=== PATIENT | female | born 1990 | race Caucasian/White ===

== ENCOUNTER 2018-06-24 21:39 | Emergency (ER) | payer MEDICAID ==
[~2018-06-24] VITALS: Ht 172.7 cm; Wt 49.0 kg
[~2018-06-24 21:39] MED LIST: ALPR0.5T9 PO; CLE150C PO; LAMO25TA PO; LURA80TA3 PO
[2018-06-24 21:56] VITALS: BP 116/81
--- NOTE | 2018-06-24 22:11 | NUR ---
Pt hyperventilating, can't control and cannot help it
[2018-06-24] MEDS ORDERED: LORazepam 1 MG tablet PO STA (22:12)
--- NOTE | 2018-06-24 22:13 | NUR ---
made aware and I received an order for ativan 2 mg po, so written.
== END 2018-06-24 23:31 | disposition home or self-care (01) ==
LOC: ER 21:40
DX: F41.9 Anxiety disorder, unspecified (principal); K21.9 Gastro-esophageal reflux disease without esophagitis; G89.29 Other chronic pain; F32.9 Major depressive disorder, single episode, unspecified; Z90.89 Acquired absence of other organs; Z88.8 Allergy status to other drugs, medicaments and biological substances
CPT/HCPCS: 99284

== ENCOUNTER 2018-11-18 17:52 | Emergency (ER) | payer MEDICAID ==
[~2018-11-18] VITALS: Ht 172.7 cm; Wt 54.5 kg
[~2018-11-18 17:52] MED LIST changes: -LAMO25TA PO; +LAMO25TA5 PO
[2018-11-18 17:56] VITALS: BP 112/67
[2018-11-18] MEDS ORDERED: HYDROcodone/acetaminophen 10/325mg tab PO ONE (18:10)
[2018-11-18] MEDS ORDERED: HYDR-4353 PO (18:10)
[2018-11-18] MEDS ORDERED: penicillin V potassium 500mg tablet PO ONE (18:10)
[2018-11-18] MEDS ORDERED: PENI500T2 PO (18:10)
== END 2018-11-18 18:25 | disposition home or self-care (01) ==
LOC: ER 17:52
DX: K08.89 Other specified disorders of teeth and supporting structures (principal); R51 Headache; K21.9 Gastro-esophageal reflux disease without esophagitis; G89.29 Other chronic pain; F41.9 Anxiety disorder, unspecified; F32.9 Major depressive disorder, single episode, unspecified; F10.99 Alcohol use, unspecified with unspecified alcohol-induced disorder; Z90.89 Acquired absence of other organs; Z88.8 Allergy status to other drugs, medicaments and biological substances; Z79.899 Other long term (current) drug therapy; Y90.9 Presence of alcohol in blood, level not specified
CPT/HCPCS: 99283

== ENCOUNTER 2021-03-04 06:59 | Emergency (ER) | payer MEDICAID ==
[~2021-03-04] VITALS: Ht 172.7 cm; Wt 65.5 kg
[2021-03-04 07:13] VITALS: BP 104/80
== END 2021-03-04 13:47 | disposition left against medical advice (07) ==
LOC: ER 06:59
DX: K08.89 Other specified disorders of teeth and supporting structures (principal); Z53.21 Procedure and treatment not carried out due to patient leaving prior to being seen by health care provider

== ENCOUNTER 2021-08-23 21:14 | Emergency (ER) | payer MEDICAID ==
[~2021-08-23] VITALS: Ht 172.7 cm; Wt 76.4 kg
[~2021-08-23 21:14] MED LIST changes: +LURA80TA2 PO; -LURA80TA3 PO
[2021-08-23 21:41] VITALS: BP 117/72
[2021-08-23 22:18] LABS: BASOPHILS % (AUTO) 0.8 % (0-1); EOSINOPHILS # (AUTO) 0.1 X10'3 (0-0.9); HEMATOCRIT 40.4 % (35.0-45.0); HEMOGLOBIN 13.5 g/dl (12.0-16.0); LYMPHOCYTES # (AUTO) 2.6 X10'3 (1.1-4.8); LYMPHOCYTES % (AUTO) 46.6 % (21-51); MEAN CORPUSCULAR HEMOGLOBIN 28.2 PG (27.0-31.0); MEAN CORPUSCULAR HGB CONC 33.4 g/dL (33.0-36.5); MEAN CORPUSCULAR VOLUME 84.3 FL (78-98); MEAN PLATELET VOLUME 7.3 FL (7.4-10.4); MONOCYTES # (AUTO) 0.5 X10'3 (0-0.9); MONOCYTES % (AUTO) 9.9 % (2-12); NEUTROPHILS # (AUTO) 2.3 X10'3 (1.8-7.7); NEUTROPHILS % (AUTO) 41.7 % (42-75); PLATELET COUNT 363 X10'3 (140-440); RED CELL DISTRIBUTION WIDTH 13.9 % (11.5-14.5); WHITE BLOOD COUNT 5.5 X10'3 (4.5-11.0)
[2021-08-23 22:34] LABS: ALANINE AMINOTRANSFERASE 28 U/L (12-78); ALBUMIN 4.1 G/DL (3.4-5.0); ALBUMIN/GLOBULIN RATIO 1.1 (1.1-1.5); ALKALINE PHOSPHATASE 77 IU/L (46-116); ANION GAP 10 (8-16); ASPARTATE AMINO TRANSFERASE 23 U/L (10-37); BILIRUBIN,TOTAL 0.2 MG/DL (0.1-1.0); BLOOD UREA NITROGEN 11 MG/DL (7-18); BUN/CREATININE RATIO 11.6 (6.6-38.0); CALCIUM 8.8 MG/DL (8.5-10.1); CHLORIDE 105 MMOL/L (99-107); CREATININE 0.95 MG/DL (0.40-0.90); GLUCOSE 133 MG/DL (70-104); LIPASE 85 U/L (73-393); POTASSIUM 3.7 MMOL/L (3.5-5.1); SODIUM 142 MMOL/L (135-145); TOTAL CARBON DIOXIDE 27.1 MMOL/L (24-32); TOTAL PROTEIN 7.8 G/DL (6.4-8.2); eGFR 70 ML/MIN
== END 2021-08-24 00:13 | disposition left against medical advice (07) ==
LOC: ER 21:14
DX: R10.31 Right lower quadrant pain (principal); Z53.21 Procedure and treatment not carried out due to patient leaving prior to being seen by health care provider
CPT/HCPCS: 36415; 80053; 83690; 85025; 99283

== ENCOUNTER → 2023-05-04 | Emergency (ER) | payer MEDICAID ==
[~2023-05-04] VITALS: Ht 172.7 cm; Wt 90.9 kg
[2023-05-04 19:26] VITALS: BP 129/82; PULSE 94; RESP 18; TEMP 97.2; O2SAT 86
[2023-05-04 20:33] LABS: BASOPHILS # (AUTO) 0.1 X10'3 (0-0.2); BASOPHILS % (AUTO) 1.3 % (0-1); EOSINOPHILS # (AUTO) 0.1 X10'3 (0-0.9); HEMATOCRIT 38.4 % (35.0-45.0); HEMOGLOBIN 12.4 g/dl (12.0-16.0); LYMPHOCYTES # (AUTO) 2.4 X10'3 (1.1-4.8); LYMPHOCYTES % (AUTO) 38.6 % (21-51); MEAN CORPUSCULAR HEMOGLOBIN 24.5 PG (27.0-31.0); MEAN CORPUSCULAR HGB CONC 32.2 g/dL (33.0-36.5); MEAN CORPUSCULAR VOLUME 76.2 FL (78-98); MEAN PLATELET VOLUME 7.2 FL (7.4-10.4); MONOCYTES # (AUTO) 0.5 X10'3 (0-0.9); MONOCYTES % (AUTO) 8.3 % (2-12); NEUTROPHILS # (AUTO) 3.1 X10'3 (1.8-7.7); NEUTROPHILS % (AUTO) 49.8 % (42-75); PLATELET COUNT 448 X10'3 (140-440); RED BLOOD COUNT 5.04 X10'6 (4.20-5.60); RED CELL DISTRIBUTION WIDTH 17.5 % (11.5-14.5); WHITE BLOOD COUNT 6.2 X10'3 (4.5-11.0)
[2023-05-04 20:47] LABS: ALANINE AMINOTRANSFERASE 18 U/L (12-78); ALBUMIN 3.5 G/DL (3.4-5.0); ALBUMIN/GLOBULIN RATIO 0.8 (1.1-1.5); ALKALINE PHOSPHATASE 127 IU/L (46-116); ANION GAP 10 (8-16); ASPARTATE AMINO TRANSFERASE 29 U/L (10-37); BILIRUBIN,TOTAL 0.2 MG/DL (0.1-1.0); BLOOD UREA NITROGEN 8 MG/DL (7-18); BUN/CREATININE RATIO 9.6 (10.0-20.0); CALCIUM 8.9 MG/DL (8.5-10.1); CHLORIDE 103 MMOL/L (99-107); CREATININE 0.83 MG/DL (0.40-0.90); GLUCOSE 84 MG/DL (70-104); POTASSIUM 3.6 MMOL/L (3.5-5.1); SODIUM 138 MMOL/L (135-145); TOTAL PROTEIN 7.9 G/DL (6.4-8.2); eCRCL 99 ML/MIN; eGFR 80 ML/MIN
[2023-05-04 20:55] LABS: PRO BRAIN NATRIURETIC PEPTIDE 51 PG/ML (0-125)
== END | disposition left against medical advice (07) ==
LOC: ER 19:00
DX: R22.42 Localized swelling, mass and lump, left lower limb (principal); R06.02 Shortness of breath; Z53.21 Procedure and treatment not carried out due to patient leaving prior to being seen by health care provider
CPT/HCPCS: 36415; 71045; 80053; 83880; 84484; 85025; 93005; 99281; 99285

== ENCOUNTER 2023-11-12 19:49 | Emergency (ER) | payer MEDICAID ==
[~2023-11-12] VITALS: Ht 172.7 cm; Wt 91.0 kg
[2023-11-12] MEDS: HYDROcodone/acetaminophen 10/325mg tab PO ONE (20:40)
[2023-11-12] MEDS: ibuprofen tablet 400 MG TABLET PO ONE (20:42)
[2023-11-12] MEDS ORDERED: HYDR-3965 PO (20:43)
[2023-11-12 21:15] VITALS: BP 132/84; PULSE 88; RESP 18; TEMP 98.2; O2SAT 99
== END 2023-11-12 21:16 | disposition home or self-care (01) ==
LOC: ER 19:49
DX: S52.611A Displaced fracture of right ulna styloid process, initial encounter for closed fracture (principal); S52.501A Unspecified fracture of the lower end of right radius, initial encounter for closed fracture; K21.9 Gastro-esophageal reflux disease without esophagitis; Z88.8 Allergy status to other drugs, medicaments and biological substances; Z79.2 Long term (current) use of antibiotics; Z79.899 Other long term (current) drug therapy; Z98.890 Other specified postprocedural states; X58.XXXA Exposure to other specified factors, initial encounter; Y93.89 Activity, other specified; Y92.89 Other specified places as the place of occurrence of the external cause; Y99.8 Other external cause status
CPT/HCPCS: 29125; 73110; 99283; A4565